=== PATIENT | male | born 1990 | race Caucasian/White ===

== ENCOUNTER → 2024-03-31 | Outpatient (CLI) | payer BC, SELFPAY ==
--- NOTE | 2024-03-31 12:08 | XR_ITS ---
Examination: Venous duplex lower extremity sonogram, bilateral. Date and time of exam: March 31, 2024 1214 hours INDICATIONS: Knee surgery January 15, 2024 followed by bilateral leg swelling and pain Technique: Multiple sonographic images of the deep venous system have been obtained. B-mode/2-D grayscale imaging of vascular structures and Doppler spectral analysis (waveforms) and color performed Both legs are examined. Findings: Deep venous systems do not demonstrate abnormal echogenicity. All visualized deep veins exhibit compressibility. All visualized deep veins exhibit augmentation. Impression: Negative for deep vein thrombosis
== END | disposition home or self-care (01) ==
PROVIDERS: PCP Nurse Practitioner Family; Referring Provider Nurse Practitioner Family; Visit Provider Nurse Practitioner Family
DX: R22.40 Localized swelling, mass and lump, unspecified lower limb (principal)
CPT/HCPCS: 93970

== ENCOUNTER → 2024-07-24 | Outpatient (CLI) | payer BC, SELFPAY ==
--- NOTE | 2024-07-24 09:14 | XR_ITS ---
Examination: Ankle Bilateral, 6 views Technique: AP oblique lateral each ankle total 6 views Exam date and time: July 24, 2024 1004 hours INDICATIONS: Bilateral ankle pain 5 months FINDINGS: Prominent osteopenia Bilateral mild narrowing tibiotalar joints Small posterior bony calcaneal spurs No erosive arthritis Impression: Mild bilateral narrowing tibiotalar joints No erosive arthritis
--- NOTE | 2024-07-24 09:14 | XR_ITS ---
Examination: Foot bilateral, 6 views Technique: AP, oblique, lateral views each foot total 6 views Date and time of exam: July 24, 2024 0943 hours INDICATIONS: Bilateral foot pain 5 months, diagnosis [employer] FINDINGS: Prominent osteopenia No fracture or dislocation involving either foot Diffuse mild to moderate bilateral osteoarthritis intertarsal joints No erosive arthritis IMPRESSION: Mild to moderate diffuse bilateral osteoarthritis intertarsal joints No erosive arthritis
== END | disposition home or self-care (01) ==
PROVIDERS: PCP Internal Medicine; Referring Provider Internal Medicine; Visit Provider Internal Medicine
DX: M25.872 Other specified joint disorders, left ankle and foot (principal); M25.871 Other specified joint disorders, right ankle and foot; M19.072 Primary osteoarthritis, left ankle and foot; M19.071 Primary osteoarthritis, right ankle and foot
CPT/HCPCS: 73610; 73630